=== PATIENT | male | born 1970 | race Two or more races ===

== ENCOUNTER 2019-05-04 14:07 | Emergency (ER) | payer OTHER ==
[~2019-05-04] VITALS: Ht 167.6 cm; Wt 82.6 kg
[~2019-05-04 14:07] MED LIST: COLACE100 MG PO; MAXIMUM DAILY1 EACH PO; METFORMIN HCL500 M2 PO; PERCOCET 5/3251 TAB PO
[2019-05-04] MEDS ORDERED: TUSNEL LIQUID178 ML PO (18:04)
== END 2019-05-04 18:22 | disposition home or self-care (01) ==
LOC: ER 14:07
DX: B34.9 Viral infection, unspecified (principal)